=== PATIENT | female | born 1980 | race Caucasian/White ===

== ENCOUNTER → 2023-09-19 15:06 | Outpatient (REF) | payer BC, SELFPAY | LOC: RAD 15:06 | PROVIDERS: ATTENDING PHYSICIAN Nurse Practitioner Family; FAMILY PHYSICIAN Family Medicine | DX: E04.2 Nontoxic multinodular goiter (principal) | CPT/HCPCS: 76536 ==

== ENCOUNTER → 2024-10-06 06:54 | Outpatient (REF) | payer BC, SELFPAY ==
--- NOTE | 2024-10-06 11:57 | EEG.RPT ---
Electroencephalogram Report
Recording
Date of EE10/06/24
Type of EEG: Routine
Length of EEG recordin minutes
Done with Video Recording: Yes
Patient Status: Outpatient
Recording Conditions: Awake and Drowsy
Hyperventilation Performed: Yes
Photic Stimulation Performed: Yes
Report
LESS THAN 1 HOUR EEG INTERPRETATION:
Unremarkable EEG for age
CLINICAL CORRELATION:
A normal EEG does not rule out a diagnosis of epilepsy. If clinical suspicion for seizure persists, a prolonged recording may be warranted.
Clinical correlation is advised.
METHODS:
A 21 channel digitized electroencephalogram (EEG) was performed using the 10/20 international system of electrode placement and one-lead of ECG recorded. The [employer] quantitative EEG system was utilized.
ELECTROENCEPHALOGRAPHER IMPRESSION(S):
Quality of study
Good
Background
There was an unremarkable anterior-posterior voltage gradient of alpha frequency.
With eye opening the background activity changed to a low voltage mixture of frequencies.
There were no significant asymmetries of background activity noted.
Sleep
Drowsiness present
Stage 1 present
Stage 2 present
Hyperventilation
No activation
Photic Stimulation
No activation
ECG
Normal sinus rhythm
== END ==
LOC: MRI 06:54
PROVIDERS: ATTENDING PHYSICIAN Psychiatry & Neurology Neurology; FAMILY PHYSICIAN Family Medicine
DX: I72.9 Aneurysm of unspecified site (principal)
CPT/HCPCS: 70547; 70551; 95816

== ENCOUNTER → 2025-01-26 10:10 | Outpatient (REF) | payer BC, SELFPAY | LOC: RCS 10:10 | PROVIDERS: ATTENDING PHYSICIAN Family Medicine; FAMILY PHYSICIAN Family Medicine; REFERRING PHYSICIAN Psychiatry & Neurology Neurology | DX: Z01.818 Encounter for other preprocedural examination (principal); G93.89 Other specified disorders of brain | CPT/HCPCS: 93005 ==

== ENCOUNTER 2025-02-08 10:27 | Emergency (ER) | payer BC, SELFPAY ==
[2025-02-08] VITALS (7 sets, daily range): BP systolic 103–113; BP diastolic 57–85
--- NOTE | 2025-02-08 13:00 | ED.GENMED ---
History of Present Illness
General
Chief Complaint: Post Operative Problem(s)
Time Seen by Provider: 02/08/25 12:45
History of Present Illness
History of Present Illness:
Patient is a 44-year-old woman with history of NPH status post PHOTORADIO OPERATOR shunt from [facility] last week presenting to the emergency department with swelling at her incision site as well as a headache. Patient states that last night she noticed a small
swelling to the incision site in her abdomen. As a day progressed she noticed that the swelling has not worsened. She has also developed a diffuse headache. No vision changes. No numbness tingling. No weakness. She has taken Tylenol as well as
oxycodone without relief of her head
Past History
Past History
ED Past Medical History: NIDDM, Psychiatric (Bipolar disorder), Other (Polycystic ovary migraines ) and Other (Diet-controlled diabetes )
ED Past Surgical History:
Social History
Tobacco: Non-smoker
Alcohol: Occasional
Drug: None
Personal:
Living: with family
Employment: Employed
Family History
Family History: Diabetes and Hypertension
Phy Exam
Physical Exam
Physical Exam:
GENERAL: in no acute distress
HEENT: normocephalic, extraocular movements intact, moist oral mucosa
NECK: normal inspection
RESPIRATORY: no respiratory distress, clear to auscultation bilaterally
CARDIOVASCULAR: regular rate and rhythm
ABDOMEN/: Softball sized collection near the incision, soft, non-distended, non-tender to palpation, no rebound or guarding
EXTREMITIES: non-tender, no edema/swelling
NEUROLOGIC: awake and alert, moves all extremities, equal strength in upper and lower extremities, normal sensation
SKIN: warm
Course
Orders/Labs/Results
Orders:
Orders
02/08/25
CT Head W/o Iv Contrast Urgent
Reason For Exam: HEADACHE, PHOTORADIO OPERATOR SHUNT
02/08/25 12:51
Acetaminophen [Tylenol] 650 mg PO NOW STA
02/08/25 12:52
CT Abd/pelvis W Iv Cont Urgent
Comment:
Reason For Exam: fluid collection near vp care management shunt
02/08/25 12:58
CR Soft Tissue Neck Urgent
Comment:
Reason For Exam: shunt series
Chest Single View Frontal CR [CR Chest Single View] Urgent
Comment:
Reason For Exam: shunt series
02/08/25 13:06
Complete Blood Count/With Diff Urgent
Comprehensive Metabolic Panel Urgent
02/08/25 13:52
Oxycodone [Roxicodone] 5 mg .ROUTE .STK-MED ONE
02/08/25 13:54
Oxycodone [Roxicodone] 5 mg PO NOW STA
02/08/25 16:11
Metoclopramide [Reglan] 10 mg IV NOW STA
02/08/25 17:12
0.9% Sodium Chloride 1000 ml [Nss] 1,000 ml IV BOLUS
Abnormal Lab Results
02/08/25
13:06
MCH 31.6 H pg
(27.0-31.0)
ALT 62 H U/L
(0-35)
02/08/25 13:06
02/08/25 13:06
Vital Signs
Initial and Last Documented VS:
Initial Vital Signs
Temp Pulse Resp BP Pulse Ox
98.2 F 98 16 110/69 100
02/08/25 10:32 02/08/25 10:32 02/08/25 10:32 02/08/25 10:32 02/08/25 10:32
Last Documented Vital Signs
Temp Pulse Resp BP Pulse Ox
98.2 F 94 21 110/68 99
02/08/25 10:32 02/08/25 17:45 02/08/25 17:45 02/08/25 17:08 02/08/25 17:45
MDM/Problems Addressed
Differential Diagnosis Includes:
Patient is a 44-year-old woman with history of NPH status post PHOTORADIO OPERATOR shunt by [facility] presenting to the emergency department with swelling at the incision site in her abdomen as well as worsening headache. On arrival vitals unremarkable and exam
does show a softball sized fluid collection at the abdominal incision site. Differential is broad but consists of PHOTORADIO OPERATOR shunt malfunction versus obstruction versus abscess. Will check blood work and CT scan. Will obtain shunt series. Will discuss
neurosurgery Dr. Morales at [facility].
*Pulse Oximetry
SaO2: 100
Oxygen Mode of Delivery: Room air
Patient hypoxic: no
*Critical Care Note
Total Time (30-74mins, 75-104mins- exclusive of procedures): Not Applicable
Update Note
Update Note:
Discussed with Dr. Hernandez who recommended transfer to [facility]. Will discuss with transfer center. If transport is available prior to CT scan we will send over without imaging
CT scan per my interpretation with coiling of the PHOTORADIO OPERATOR shunt tubing in the anterior abdominal wall. Per official read there is an adjacent fluid collection. No hydrocephalus.
Patient transported in stable condition to [facility]
ED Attending Note
-
Portions of this chart may have been created with voice recognition software.� Occasional wrong word or��sound alike� substitutions may have occurred due to the inherent limitations of voice recognition software.
Discharge Plan
Departure
Patient Disposition: Acute Care Hospital
Date of Disposition: 02/08/25
Time of Disposition: 13:32
Discharge Problem:
vp care management shunt malfunction
Prescriptions:
No Action
medroxyprogesterone [Depo-Provera Contraceptive] 150 mg/mL Suspension
150 mg IM [id number]
acetaminophen [Tylenol] 325 mg Tablet
650 mg PO Q4H PRN (Reason: pain)
naproxen sodium [Aleve] 220 mg Capsule
220 mg PO BID PRN (Reason: pain)
sulfamethoxazole-trimethoprim [Bactrim DS] 800-160 mg Tablet
1 tab PO Q12H
Patient Comments:
today is last dose
Referrals:
Syk Robbins MD [Family Provider, Family Practice]
Hospital Transfer
Other hospital: [facility]
I certify that the patient requires transfer: Yes
Discussed case with accepting physician: Dr Morales
Reason for transfer: specialties available
Interventions
Interventions:
*Risk Screen - Suicide Last Done: 02/08/25 10:32
*General Assessment Last Done: 02/08/25 10:32
*Neglect/Abuse Screening Last Done: 02/08/25 10:32
*ED- Fall Risk Assessment Last Done: 02/08/25 10:32
*ED COVID-19 Vaccine History Last Done: 02/08/25 10:32
*ED Influenza Vaccine History Last Done: 02/08/25 10:32
*Nursing Disposition Last Done: 02/08/25 17:47
ED-Skin Assessment Last Done: 02/08/25 12:02
Discharge Date and Time
Discharge Date/Time: 02/08/25 17:56
Print Language: [id number]
[2025-02-08] MEDS: TYLENOL 650 MG PO (13:01)
[2025-02-08 13:12] LABS: Hematocrit 45.4 % (37.0-47.0); Hemoglobin 15.3 g/dL (12.0-16.0); Mean Corp Hgb Conc. 33.7 g/dL (33.0-37.0); Mean Corpuscular Volume 93.8 fL (81.0-99.0); Nucleated Red Blood Cells % 0 %; Platelet Count 331 10^3/uL (130-400); Red Cell Dist. Width 12.0 % (11.5-14.5)
[2025-02-08 13:26] LABS: ALT (SGPT) 62 U/L (0-35); AST (SGOT) 27 U/L (14-36); Albumin 4.6 g/dl (3.5-5.0); Alkaline Phosphatase 58 U/L (38-126); Blood Urea Nitrogen 15 mg/dl (7-17); Calcium 9.5 mg/dl (8.4-10.2); Carbon Dioxide 25 mmol/L (22-30); Chloride 105 mmol/L (98-107); Glucose 96 mg/dl (70-99); Potassium 4.5 mmol/L (3.5-5.1); Sodium 137 mmol/L (135-145); Total Protein 7.9 g/dl (6.3-8.2); eGFR > 60.00
[2025-02-08] MEDS: ROXICODONE 5 MG PO (13:54)
[2025-02-08] MEDS: REGLAN 10 MG IV (16:26)
[2025-02-08] MEDS: NSS 1000 IV (17:12)
== END 2025-02-08 17:56 | disposition short-term general hospital (02) ==
LOC: EMR 10:27
PROVIDERS: EMERGENCY PHYSICIAN Student in an Organized Health Care Education/Training Program; FAMILY PHYSICIAN Family Medicine
DX: T85.01XA Breakdown (mechanical) of ventricular intracranial (communicating) shunt, initial encounter (principal); Y75.2 Prosthetic and other implants, materials and neurological devices associated with adverse incidents; G91.2 (Idiopathic) normal pressure hydrocephalus; Z98.2 Presence of cerebrospinal fluid drainage device; E11.9 Type 2 diabetes mellitus without complications; F31.9 Bipolar disorder, unspecified; E28.2 Polycystic ovarian syndrome; Z83.3 Family history of diabetes mellitus
CPT/HCPCS: 99285; 96374; 70360; 70450; 71045; 74177; 80053; 85025; Q9967